=== PATIENT | female | born 1980 | race Caucasian/White ===

== ENCOUNTER 2016-11-28 09:19 | Day surgery (SDC) | payer OTHER ==
[~2016-11-28 09:19] MED LIST: LACTATED RINGERS 1,000 ML IV SCH
[2016-11-28] MEDS ORDERED: LACTATED RINGERS 1,000 ML ONE (09:32)
[2016-11-28] MEDS ORDERED: IV START KIT ONE (09:32)
[2016-11-28] MEDS ORDERED: PROPOFOL 20 ML IV ONE (10:26)
[2016-11-28 15:18] LABS: HELICOBACTER PYLORII DETECTION NEGATIVE (NEGATIVE)
--- NOTE | 2016-12-02 13:40 | SURGPATH ---
[facility] [address] [place] [id number] Patient Name: BETH ESCOBEDO MR#: [id number] : 1980 Gender: F Specimen #: [id number] Collected: 11/28/2016 Received: 11/29/2016 Reported: 12/02/2016 Submitting Phys: JOANNA CASTILLO Copy To Phys: [facility] Clinical History / Pre-Operative Diagnosis: EPIGASTRIC PAIN WITH NAUSEA AND VOMITING; RULE OUT GIARDIA, CELIAC SPRUE AND GASTRITIS Specimen Source / Surgical Procedure Performed: #1-DUODENAL BIOPSY; #2-ANTRAL BIOPSY Interpretation: 1. DUODENUM, BIOPSY: - NO DIAGNOSTIC ABNORMALITIES 2. STOMACH, ANTRUM, BIOPSY: - NO DIAGNOSTIC ABNORMALITES - NO HELICOBACTER ORGANISMS SEEN ON ROUTINE STAIN Electronically Signed Out Cee Skelton M.D. Gross Description: #1 The specimen is received in a formalin filled container labeled with the patient's name and "duodenal biopsy". Two quiñones biopsies are 0.3 and 0.4 cm. Totally embedded in cassette #1. #2 The specimen is received in a formalin filled container labeled with the patient's name and "antral biopsy". Two quiñones biopsies are 0.4 and 0.5 cm. Totally embedded in cassette #2. Liliana Salmon Microscopic Description: Part 1: Sections show duodenal mucosa with overall intact architecture with a villous to crypt ratio of three to one. No increased intraepithelial lymphocytes, gastric metaplasia, active duodenitis, or evidence of Giardia are seen on routine stain. No malignancy is seen. Part 2: Sections show gastric antral and oxyntic mucosa with overall intact architecture. No significant active or chronic inflammation is seen. No Helicobacter organisms are seen on routine stain. No dysplasia or malignancy is seen. 1: 68002 2: 75150 R10.10
== END 2016-11-28 11:06 | disposition home or self-care (01) ==
LOC: SDC 09:19
PROVIDERS: ATTEND Internal Medicine Gastroenterology
PROC: 0DB98ZX Excision of Duodenum, Via Natural or Artificial Opening Endoscopic, Diagnostic (ICD-10-PCS; principal; 2016-11-28)
PROC: 0DB68ZX Excision of Stomach, Via Natural or Artificial Opening Endoscopic, Diagnostic (ICD-10-PCS; 2016-11-28)
DX: K29.70 Gastritis, unspecified, without bleeding (principal); K29.80 Duodenitis without bleeding; G43.909 Migraine, unspecified, not intractable, without status migrainosus; Z72.0 Tobacco use; Z88.2 Allergy status to sulfonamides; Z88.0 Allergy status to penicillin
CPT/HCPCS: 87081; 43239; J7120